=== PATIENT | male | born 1970 | race Caucasian/White ===

== ENCOUNTER 2018-06-07 06:30 | Observation (INO) | payer MEDICAID ==
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
[2018-06-07 07:24] LABS: BASO # 0.02 K/mm3 (0.0-2.0); BASO % 0.4 % (0.0-3.0); EOS # 0.1 (0.0-0.7); EOS % 1.8 % (1.5-5.0); GRAN # 3.92 (1.4-6.5); GRAN % 71.8 % (50.0-68.0); LYMPH # 0.9 (1.2-3.4); LYMPH % 16.8 % (22.0-35.0); MEAN CELL VOLUME 80.8 fl (80.0-105.0); MEAN CORPUSCULAR HEMOGLOBIN 27.2 pg (25.0-35.0); MEAN CORPUSCULAR HGB CONC 33.7 g/dl (31.0-37.0); MEAN PLATELET VOLUME 9.8 fl (7.0-11.0); MONO # 0.5 (0.1-0.6); MONO % 9.2 % (1.0-6.0); RBC 5.15 10^6/uL (3.5-6.1); RED CELL DISTRIBUTION WIDTH 13.6 % (11.5-14.5); WHITE BLOOD COUNT 5.5 10^3/ul (4.5-11.0)
[2018-06-07] MEDS: Nitroglycerin 2% Ointment Foilpak UD TOP STA ×2 (07:32→07:54)
[2018-06-07 07:36] LABS: ALB/GLOB RATIO 1.5 (1.1-1.8); ALBUMIN 4.4 g/dL (3.0-4.8); ALT/SGPT 48 U/L (7-56); AST/SGOT 35 U/L (17-59); BLOOD UREA NITROGEN 15 mg/dL (7-21); CALCIUM 9.4 mg/dL (8.4-10.5); GFR AFRICAN-AMERICAN > 60; GFR NON-AFRICAN AMERICAN > 60; LIPASE 112 U/L (23-300)
[2018-06-07 07:37] LABS: INR 1.03; PROTHROMBIN TIME 11.9 SECONDS (9.4-12.5)
[2018-06-07 07:40] LABS: PARTIAL THROMBOPLASTIN TIME 27.4 Seconds (25.1-36.5)
[2018-06-07 07:47] LABS: B-TYPE NATRIURETIC PEPTIDE 120 pg/mL (0-450); TROPONIN I 0.03 ng/mL
[2018-06-07] MEDS: Sodium Chloride 0.9% 1,000 ML IV SCH ×2 (07:54→17:09)
--- NOTE | 2018-06-07 09:07 | RAD ---
Date of service: 06/07/2018 HISTORY: chest pain COMPARISON: 07/02/2016 FINDINGS: LUNGS: No active pulmonary disease. PLEURA: No significant pleural effusion identified, no pneumothorax apparent. CARDIOVASCULAR: Normal. OSSEOUS STRUCTURES: No significant abnormalities. VISUALIZED UPPER ABDOMEN: Normal. OTHER FINDINGS: None. IMPRESSION: No active disease.
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
--- NOTE | 2018-06-07 09:33 | CARD ---
APPROVED REPORT Date of service: 06/07/2018 EKG Measurement Heart [id number] <Conclusion> Sinus tachycardia Possible Left atrial enlargement Left ventricular hypertrophy with repolarization abnormality Abnormal ECG
[2018-06-07] MEDS: Enoxaparin 40 mg Syringe SC SCH (14:18)
[2018-06-07 15:45] LABS: URINE APPEARANCE CLEAR (CLEAR); URINE BILIRUBIN NEGATIVE (NEGATIVE); URINE BLOOD NEGATIVE (NEGATIVE); URINE COLOR YELLOW (YELLOW); URINE GLUCOSE (UA) NEGATIVE (NEGATIVE); URINE LEUKOCYTE ESTERASE NEGATIVE Leu/uL (NEGATIVE); URINE PROTEIN NEGATIVE mg/dL (<30 mg/dL); URINE UROBILINOGEN 0.2 E.U./dL (<1 E.U./dL)
[2018-06-07 16:06] LABS: BARBITURATES, UR NEGATIVE (NEGATIVE); BENZODIAZEPINES, UR NEGATIVE (NEGATIVE); OPIATES, UR NEGATIVE (NEGATIVE); PHENCYCLIDINE, UR NEGATIVE (NEGATIVE)
[2018-06-07 17:55] VITALS: RESP 20
--- NOTE | 2018-06-07 21:31 | CON ---
Copied To: Artem Arroyo MD Attending MD: Artem Arroyo MD DATE: REASON FOR CONSULTATION: Chest tightness. HISTORY OF PRESENT ILLNESS: The patient is a 48-year-old male who has history of hypertension, history of coronary artery disease, underwent recently on 05/26/2018 circumflex artery stenting at [facility] where a 3 x 12 mm drug-eluting stent was used. The patient has been compliant with his antiplatelet regimen including aspirin and Plavix. He presents because of chest tightness. Denies any associated diaphoresis or shortness of breath. SOCIAL HISTORY: The patient is a former smoker. MEDICATIONS: Aspirin 81 mg once a day, Cozaar 50 mg once a day, Lipitor 10 mg once a day, hydrochlorothiazide 12.5 mg once a day, Norvasc 5 mg once a day, Plavix 75 mg once a day. REVIEW OF SYSTEMS: No nausea or vomiting. No fever or chills. No dizziness or syncope. PHYSICAL EXAMINATION: GENERAL: The patient is a middle-aged male who does not appear to be in any distress. VITAL SIGNS: Blood pressure 147/90, heart rate 93, temperature 98.6, respiration 18. HEENT: Normocephalic. CHEST: Clear. HEART: S1, S2 regular. ABDOMEN: Soft. EXTREMITIES: No edema. LABORATORY DATA: SMA-7 is within normal limits except for glucose of 189. Troponin 0.03. TSH level is within normal limits. Lipase level is within normal limit. Hemoglobin and hematocrit is 14 and 41.6, white count and platelet count are within normal limits. EKG revealed sinus tachycardia at rate of 104, possible left atrial enlargement, LVH with repolarization changes. ASSESSMENT: 1. Chest pain, rule out myocardial infarction. 2. Status recent mid circumflex artery stenting with drug-eluting stent on 05/26/2018, 10 days ago at [facility]. 3. Hypertension and possible diabetes mellitus. RECOMMENDATIONS: Continue current aspirin, Lipitor, Cozaar, Norvasc, Plavix. Obtain urine for drug screen. Monitor one more set of troponin. Artem Arroyo MD [facility] # [id number]
[2018-06-08] MEDS: Sodium Chloride 0.9% 1,000 ML IV SCH (04:00)
[2018-06-08 06:25] LABS: BASO # 0.02 K/mm3 (0.0-2.0); BASO % 0.3 % (0.0-3.0); EOS # 0.2 (0.0-0.7); EOS % 2.3 % (1.5-5.0); GRAN # 4.26 (1.4-6.5); GRAN % 65.8 % (50.0-68.0); HEMOGLOBIN 13.6 g/dL (14.0-18.0); LYMPH # 1.5 (1.2-3.4); LYMPH % 23.3 % (22.0-35.0); MEAN CELL VOLUME 80.8 fl (80.0-105.0); MEAN CORPUSCULAR HGB CONC 33.4 g/dl (31.0-37.0); MEAN PLATELET VOLUME 10.1 fl (7.0-11.0); MONO # 0.5 (0.1-0.6); MONO % 8.3 % (1.0-6.0); RBC 5.04 10^6/uL (3.5-6.1); RED CELL DISTRIBUTION WIDTH 13.9 % (11.5-14.5); WHITE BLOOD COUNT 6.5 10^3/ul (4.5-11.0)
[2018-06-08 06:41] LABS: BLOOD UREA NITROGEN 15 mg/dL (7-21); CALCIUM 8.8 mg/dL (8.4-10.5); GFR AFRICAN-AMERICAN > 60; GFR NON-AFRICAN AMERICAN > 60; HDL CHOLESTEROL 22 mg/dL (29-60)
[2018-06-08 06:52] LABS: LDL CHOLESTEROL 93 mg/dL (0-129)
[2018-06-08 07:09] LABS: TROPONIN I 0.03 ng/mL
--- NOTE | 2018-06-08 08:43 | CP.PCM.PN ---
Subjective - Date & Time of Evaluation Date of Evaluation: 06/08/18 Time of Evaluation: 08:42 - Subjective Subjective: No cp, palp, this AM. Stated woke up w/ one apneic event overnight which was with very minimal severity. No other complaints voiced at this time. Objective - Vital Signs/Intake and Output Vital Signs (last 24 hours): Temp Pulse Resp BP Pulse Ox 98.9 F 44 L 20 128/66 97 06/07/18 17:55 06/08/18 05:22 06/07/18 17:55 06/07/18 17:55 06/07/18 17:55 Intake and Output: 06/08/18 06/08/18 06:59 18:59 Intake Total 1440 Output Total 3 Balance 1437 - Medications Medications: Current Medications Amlodipine Besylate (Norvasc) 5 mg PO DAILY [facility] Last Admin: 06/07/18 11:34 Dose: Not Given Aspirin (Aspirin Chewable) 81 mg PO DAILY [facility] Atorvastatin Calcium (Lipitor) 10 mg PO DIN [facility] Last Admin: 06/07/18 17:05 Dose: 10 mg Clopidogrel Bisulfate (Plavix) 75 mg PO DAILY [facility] Last Admin: 06/07/18 11:34 Dose: Not Given Enoxaparin Sodium (Lovenox) 40 mg SC DAILY [facility] PRN Reason: Protocol Last Admin: 06/07/18 14:18 Dose: 40 mg Hydrochlorothiazide (Microzide) 12.5 mg PO DAILY [facility] Last Admin: 06/07/18 11:34 Dose: Not Given Sodium Chloride (Sodium Chloride 0.9%) 1,000 mls @ 100 mls/hr IV .Q10H [facility] Last Admin: 06/08/18 04:00 Dose: 100 mls/hr Losartan Potassium (Cozaar) 50 mg PO DAILY [facility] Last Admin: 06/07/18 11:34 Dose: Not Given - Labs Labs: 06/08/18 06:00 06/08/18 06:00 PT 11.9 SECONDS (9.4-12.5) 06/07/18 07:11 INR 1.03 06/07/18 07:11 APTT 27.4 Seconds (25.1-36.5) 06/07/18 07:11
[2018-06-08 09:09] VITALS: BP 139/82; PULSE 67; TEMP 97.9; O2SAT 98
--- NOTE | 2018-06-08 09:32 | CARD ---
APPROVED REPORT Date of service: 06/08/2018 EKG Measurement Heart [id number] <Conclusion> Normal sinus rhythm Left ventricular hypertrophy with repolarization abnormality Abnormal ECG
--- NOTE | 2018-06-08 09:35 | CARD ---
APPROVED REPORT Date of service: 06/08/2018 EKG Measurement Heart [id number] <Conclusion> Normal sinus rhythm Left ventricular hypertrophy with repolarization abnormality Abnormal ECG
[2018-06-08] MEDS: Enoxaparin 40 mg Syringe SC SCH (10:11)
--- NOTE | 2018-06-08 10:21 | CARD ---
APPROVED REPORT Date of service: 06/08/2018 EXAM: Two-dimensional and M-mode echocardiogram with Doppler and color Doppler. INDICATION Chest Pain 2D DIMENSIONS IVSd1.4 (0.7-1.1cm)LVDd4.9 (3.9-5.9cm) PWd1.7 (0.7-1.1cm)LVDs3.4 (2.5-4.0cm) FS (%) 30.7 %LVEF (%)57.9 (>50%) M-Mode DIMENSIONS Aortic Root3.00 (2.2-3.7cm)Aortic Cusp Exc.1.20 (1.5-2.0cm) Aortic Valve AoV Peak Eejezwyh631.0cm/Gordon Peak GR.5mmHg Mitral Valve E/A ratio0.0 TDI E/Lateral E'0.0E/Medial E'0.0 LEFT VENTRICLE The left ventricle is normal size. There is moderate concentric left ventricular hypertrophy. The left ventricular function is normal. The left ventricular ejection fraction is within the normal range. There is normal LV segmental wall motion. Transmitral Doppler flow pattern is Grade I-abnormal relaxation pattern. RIGHT VENTRICLE The right ventricle is normal size. There is normal right ventricular wall thickness. The right ventricular systolic function is normal. ATRIA The left atrium size is normal. The right atrium size is normal. AORTIC VALVE The aortic valve is not well visualized. No aortic regurgitation is present. There is no aortic valvular stenosis. MITRAL VALVE The mitral valve is normal in structure. There is no mitral valve regurgitation noted. There is no mitral valve stenosis. TRICUSPID VALVE The tricuspid valve is normal in structure. There is no tricuspid valve regurgitation noted. GREAT VESSELS The aortic root is normal in size. The IVC is normal in size and collapses >50% with inspiration. PERICARDIAL EFFUSION There is no pericardial effusion. <Conclusion> The left ventricle is normal size. There is moderate concentric left ventricular hypertrophy. The left ventricular function is normal. The left ventricular ejection fraction is within the normal range. There is normal LV segmental wall motion. Transmitral Doppler flow pattern is Grade I-abnormal relaxation pattern.
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
--- NOTE | 2018-06-08 13:22 | CP.PCM.PCO ---
Physician Communication Note - Physician Communication Note Physician Communication Note: d/w , pt is not suicidal/or homicidal, not psychotic, consult was Addendum Addendum: 06/08/18 13:21 d/w , pt is not suicidal/or homicidal, not psychotic, consult was canceled it was advised to provide info about psychiatric outpatient clinics in [place] pt could be f/u as outpatient no acute issues.
--- NOTE | 2018-06-08 15:39 | PN ---
Copied To: Artem Arroyo MD Attending MD: Artem Arroyo MD DATE: 06/08/2018 SUBJECTIVE: The patient denies chest pain. PHYSICAL EXAMINATION: VITAL SIGNS: Blood pressure 139/82, heart rate 67, temperature 97.9, respirations 20. HEENT: Normocephalic. CHEST: Clear. HEART: S1 and S2, regular. EXTREMITIES: No edema. LABORATORY DATA: Three sets of troponins are 0.03. SMA-7 is within normal limits except for glucose of 114. Echocardiographic study revealed moderate concentric LVH with normal systolic function, reduced diastolic compliance. ASSESSMENT: 1. Chest pain, myocardial infarction is ruled out. 2. Status post mid circumflex artery stenting with drug-eluting stent last week at [facility]. 3. Hypertension. CONDITIONS: Continue aspirin, Cozaar, Lipitor, hydrochlorothiazide, Norvasc and Plavix. The patient can be discharged if his D-dimer is within normal limits. Artem Arroyo MD : 06/08/2018 10:59:11
== END 2018-06-08 13:52 | disposition home or self-care (01) ==
LOC: ED 06:30 → ERH 08:31 → 3RSO 10:27
PROVIDERS: ADMIT Internal Medicine; ATTEND Internal Medicine
DX: R07.9 Chest pain, unspecified (principal); F41.0 Panic disorder [episodic paroxysmal anxiety]; I10 Essential (primary) hypertension; E78.5 Hyperlipidemia, unspecified; F32.89 Other specified depressive episodes; I25.10 Atherosclerotic heart disease of native coronary artery without angina pectoris; Z79.02 Long term (current) use of antithrombotics/antiplatelets; Z79.82 Long term (current) use of aspirin; Z80.9 Family history of malignant neoplasm, unspecified; Z83.3 Family history of diabetes mellitus; Z87.891 Personal history of nicotine dependence; Z95.5 Presence of coronary angioplasty implant and graft
CPT/HCPCS: 36415; 71045; 80048; 80053; 80061; 80324; 80345; 80346; 80349; 80353; 80358; 80361; 81003; 83036; 83690; 83880; 83992; 84443; 84484; 85025; 85378; 85610; 85730; 93005; 93306; 99285; G0378; J1650; J7030

== ENCOUNTER 2019-01-20 05:37 | Emergency (ER) | payer MEDICAID ==
[2019-01-20 05:47] VITALS: BP 153/94; TEMP 98.6; O2SAT 97
[2019-01-20 05:53] VITALS: PULSE 94; RESP 21; BMI 36.3
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
--- NOTE | 2019-01-21 10:28 | CARD ---
APPROVED REPORT Date of service: 01/20/2019 EKG Measurement Heart [id number] <Conclusion> Normal sinus rhythm Possible Left atrial enlargement Left ventricular hypertrophy with repolarization abnormality Abnormal ECG
== END 2019-01-20 06:31 | disposition home or self-care (01) ==
LOC: ED 05:37
DX: M62.838 Other muscle spasm (principal); Z95.5 Presence of coronary angioplasty implant and graft